=== PATIENT | male | born 1960 | race Caucasian/White ===

== ENCOUNTER 2017-08-13 10:14 | Outpatient (CLI) | payer MEDICARE, MEDICAID ==
--- NOTE | 2017-08-13 11:20 | RAD ---
KUB: Indication: History of right sided abdominal pain. FINDINGS: There is an irregular calcification within the left aspect of the hemipelvis which is new from the [facility] CT topogram dated 08-19-15. This calcification may be related to portions of the bladder or p ossibly the bowel wall. This is unlikely to be related to a vascular structure in the pelvis. Bowel g as pattern is unobstructed. There are small phleboliths within the lower pelvis. No suspicious calcif ication overlying the renal shadows or expected course of the renal collecting systems. No acute osse ous abnormality is evident. IMPRESSION: Irregular calcification seen within the left hemipelvis which may reflect a partially calcified lesio n within the pelvis, possibly related to the bladder, bowel or the vas deferens. CT of the abdomen an d pelvis utilizing a urogram protocol is recommended. Code T POS: [facility]NY
== END 2017-08-13 10:15 | disposition home or self-care (01) ==
LOC: RAD-FRANK 10:14
PROVIDERS: ATTEND Nurse Practitioner Family
DX: Z12.11 Encounter for screening for malignant neoplasm of colon (principal); M85.88 Other specified disorders of bone density and structure, other site
CPT/HCPCS: 74018

== ENCOUNTER 2018-07-24 16:09 | Outpatient (CLI) | payer MEDICARE, MEDICAID ==
--- NOTE | 2018-07-24 19:35 | RAD ---
SUPINE ABDOMEN: History: Abdominal pain. Comparison: 08-13-17 FINDINGS: Scattered stool and gas is seen throughout the colon. Small bowel gas pattern is unremarkable. Irregularly shaped dense calcification in the left hemipelvis is again seen. This was described on pr ior exam and is unchanged. There are other vascular type calcifications in the deep pelvis. IMPRESSION: 1. Unremarkable bowel gas pattern. 2. Abnormal spiculated type calcification in the left hemipelvis is again noted. POS: C
== END 2018-07-24 16:10 | disposition home or self-care (01) ==
LOC: RAD-FRANK 16:09
PROVIDERS: ATTEND Nurse Practitioner Family
DX: R10.9 Unspecified abdominal pain (principal)
CPT/HCPCS: 74018

== ENCOUNTER 2018-07-30 09:44 | Emergency (ER) | payer MEDICARE, MEDICAID ==
[2018-07-30 10:25] LABS: #Eosinphils 0.2 thou/uL (0.0-0.7); #Lymphocytes 1.4 thou/uL (1.20-3.40); #Monocytes 0.5 thou/uL (0.11-0.59); #Neutrophils 5.1 thou/uL (1.40-6.50); %Basophils 0.3 % (0.0-1.0); %Eosinophils 3.1 % (0.0-10.0); %Lymphocytes 19.2 % (21.0-51.0); %Monocytes 6.8 % (0.0-10.0); %Neutrophils 70.5 % (42.0-75.0); Hemoglobin 16.8 g/dL (14.0-18.0); Mean Corpuscular HGB CONC 32.9 g/dL (32.0-36.0); Mean Corpuscular Hemoglobin 30.2 pg (27.0-31.0); Mean Platelet Volume 9.3 fL (7.4-10.4); Platelet Count 184 thou/uL (130-400); RBC Distribution Width 12.5 % (11.5-14.5); Red Blood Cell (RBC) Count 5.57 mill/uL (4.70-6.10); White Blood Cell (WBC) Count 7.2 thou/uL (4.8-10.8)
[2018-07-30 10:49] LABS: ALT (SGPT) 27 U/L (8-55); AST (SGOT) 20 U/L (5-34); Albumin 4.4 g/dL (3.5-5.0); Alkaline Phosphatase 100 U/L (40-150); Anion Gap 11 mmol/L (10-20); BUN (Urea Nitrogen) 13 mg/dL (8.4-25.7); Bilirubin, Total 0.5 mg/dL (0.2-1.2); Calc. Creatinine Clearance 0 mL/min (70-130); Carbon Dioxide 27 mmol/L (22-29); Chloride 103 mmol/L (98-107); Estimated GFR-MDRD 72; Globulin 2.8 g/dL (2.4-3.5); Glucose 157 mg/dL (70-105); Lipase 93 U/L (8-78); Potassium 4.2 mmol/L (3.5-5.1); Protein, Total 7.2 g/dL (6.0-8.3); Sodium 137 mmol/L (136-145)
[2018-07-30] MEDS ORDERED: Dicyclomine 20 MG TAB ONE (12:02)
[2018-07-30 12:28] LABS: Bilirubin Negative (Negative); Blood, Urine Negative (Negative); Clarity CLEAR (Clear); Glucose, Urine (Dipstick) 500 mg/dL (Negative); Leukocyte Trace (Negative); Nitrite Negative (Negative); Protein, Urine (Dipstick) Negative (Neg-Trace); Specific Gravity, Urine 1.017 (1.002-1.036); pH, Urine 5.5 (5.0-9.0)
[2018-07-30 12:31] LABS: Bacteria/HPF None Seen HPF (None Seen); Hyaline Casts/LPF 0-3 HYALINE CAST LPF (0-3 Hyaline); RBC/HPF None Seen HPF (0-3); Squamous Epithelial None Seen HPF (0-3); WBC/HPF 0-3 HPF (0-3)
--- NOTE | 2018-07-30 12:46 | CT ---
CT ABDOMEN WITH CONTRAST: CT PELVIS WITH CONTRAST: HISTORY: Worsening right lower quadrant pain. COMPARISON: None. FINDINGS: ABDOMEN: The lung bases are clear. There are coronary artery calcifications. Heart size is within normal limits. No pericardial effusion. The descending thoracic aorta and abdominal aorta have a no rmal caliber. No periaortic fat stranding. The portal vein is patent. Unremarkable gallbladder. Hypoattenuation of the liver due to hepatic steatosis. The spleen, pancreas, and adrenal glands have appropriate enhancement. Mild atrophy of the pancreas. No gastrohepatic, retrocrural, or periportal lymphadenopathy. Nonspecific periaortic and aortocaval lymph nodes. Symmetric enhancement of the kidneys. Bilaterally, no obstructive uropathy. Limited evaluation of the alimentary canal due to lack of oral contrast. No evidence of bowel obstru ction. The ileocecal junction is normal. Normal caliber appendix. Scattered material in a no ndistended, nondilated colon. Occasional diverticulosis, without evidence of diverticulitis. PELVIS: No pelvic mass, lymphadenopathy, free air, or free fluid. There is a diverticulum at the le ft aspect of the urinary bladder, which contains a stellate-appearing calcification. The calcificati on measures 2 x 1.6 cm. Mild prominence of the urinary bladder mucosa. There are no lytic or blastic lesions. There appears to be pseudoarthrosis of the left S1 ala with t he S2 vertebral body. IMPRESSION: 1. Normal caliber appendix. 2. Incidental stellate calcification in a diverticula, emanating from the left aspect of the urinary bladder. Nonemergent urology consultation is recommended. 3. Mild mucosal prominence of the urinary bladder, which can also be evaluated with cystoscopy. POS: [facility]
== END 2018-07-30 13:17 | disposition home or self-care (01) ==
LOC: ERS 09:44
DX: N32.3 Diverticulum of bladder (principal); E78.5 Hyperlipidemia, unspecified; I10 Essential (primary) hypertension; G40.909 Epilepsy, unspecified, not intractable, without status epilepticus; I25.2 Old myocardial infarction; F32.9 Major depressive disorder, single episode, unspecified; F17.210 Nicotine dependence, cigarettes, uncomplicated; Z79.899 Other long term (current) drug therapy; Z79.84 Long term (current) use of oral hypoglycemic drugs
CPT/HCPCS: 36415; 74177; 80053; 81003; 81015; 83690; 85025; 96360

== ENCOUNTER 2019-06-03 16:21 | Emergency (ER) | payer MEDICARE, MEDICAID ==
[~2019-06-03 16:21] MED LIST: Iopamidol-370 76% 500 ML 1 ML ONE
[2019-06-03 17:30] LABS: Bacteria/HPF 4+ HPF (None Seen); Bilirubin Negative (Negative); Blood, Urine 3+ (Negative); Clarity Extra Turbid (Clear); Glucose, Urine (Dipstick) 500 mg/dL (Negative); Leukocyte 500 Leu/uL (Negative); Nitrite Negative (Negative); Protein, Urine (Dipstick) 300 mg/dL (Neg-Trace); RBC/HPF Greater than 50 HPF (0-3); Squamous Epithelial None Seen HPF (0-3); Urobilinogen Normal mg/dL (Less than 2); WBC/HPF Greater than 50 HPF (0-3)
[2019-06-03 17:41] LABS: #Eosinphils 0.2 thou/uL (0.0-0.7); #Monocytes 1.2 thou/uL (0.11-0.59); #Neutrophils 11.6 thou/uL (1.40-6.50); %Basophils 0.1 % (0.0-1.0); %Eosinophils 1.2 % (0.0-10.0); %Lymphocytes 13.1 % (21.0-51.0); %Monocytes 7.7 % (0.0-10.0); %Neutrophils 77.8 % (42.0-75.0); Hemoglobin 17.3 g/dL (14.0-18.0); Mean Corpuscular Hemoglobin 31.2 pg (27.0-31.0); Mean Corpuscular Volume 89.1 fL (78.0-98.0); Mean Platelet Volume 9.1 fL (7.4-10.4); Platelet Count 174 thou/uL (130-400); RBC Distribution Width 12.4 % (11.5-14.5); Red Blood Cell (RBC) Count 5.54 mill/uL (4.70-6.10); White Blood Cell (WBC) Count 14.9 thou/uL (4.8-10.8)
[2019-06-03] MEDS ORDERED: cefTRIAXone\\ROCEPHIN 2 GM VIAL ONE (17:52)
[2019-06-03 18:00] LABS: ALT (SGPT) 34 U/L (8-55); AST (SGOT) 20 U/L (5-34); Albumin 4.4 g/dL (3.5-5.0); Alkaline Phosphatase 111 U/L (40-110); Anion Gap 14 mmol/L (10-20); BUN (Urea Nitrogen) 17 mg/dL (8.4-25.7); Bilirubin, Total 0.9 mg/dL (0.2-1.2); Calc. Creatinine Clearance 0 mL/min (70-130); Calcium 9.6 mg/dL (7.8-10.44); Carbon Dioxide 24 mmol/L (22-29); Chloride 103 mmol/L (98-107); Estimated GFR-MDRD 60; Globulin 3.2 g/dL (2.4-3.5); Glucose 139 mg/dL (70-105); Potassium 4.3 mmol/L (3.5-5.1); Protein, Total 7.6 g/dL (6.0-8.3); Sodium 137 mmol/L (136-145)
--- NOTE | 2019-06-03 19:11 | CT ---
CT ABDOMEN AND PELVIS WITH IV CONTRAST 06/03/2019 CLINICAL INFORMATION: Lower abdominal pain, left greater than right. Urinary tract issues. Painful urination with only a sm all amount of urine output. COMPARISON: 07/30/2018 Technique: Multiple contiguous axial CT images are obtained through the abdomen and pelvis with IV contrast. Cor onal reformatted images are provided. FINDINGS: Lower Chest: Linear atelectasis is present in the right middle lobe with minimal dependent atelectasi s at each lung base. Vessels: Vascular calcifications are again seen in the coronary arteries as well as the abdominal aor ta and iliac arteries. Abdomen: Portal vein:Patent Gallbladder: Within normal limits for CT imaging. Liver: within normal limits. Spleen: within normal limits. Pancreas: within normal limits. Adrenals: within normal limits. Kidneys: Normal in appearance bilaterally. There is mild nonspecific but symmetric bilateral perineph zaki stranding. Bowel: Normal caliber. Appendix: The appendix is visualized and normal in caliber. Peritoneum: No ascites or free air; no fluid collection. Mesentery and Retroperitoneum: No enlarged mesenteric or retroperitoneal lymph nodes. Abdominal Wall: within normal limits. Pelvis: Reproductive Organs: No pelvic masses. Pelvis within normal limits. Bladder: Adam of the urinary bladder are significantly thickened, and there is mild adjacent inflamm atory stranding present. Gas is present within the urinary bladder which could be related to recent catheterization. As noted on the prior examination, there is a stellate appearing calcification seen in a urinary bladder diverticulum at the left posterolateral aspect of the urinary bladder similar to prior study. Bones: Degenerative changes are again seen in the spine. Median sternotomy wires are seen overlying t he lower sternum. IMPRESSION: 1. Evidence of cystitis. Gas is present within the urinary bladder which may be related to recent ins trumentation. Of prior instrumentation is not been performed, gas-forming organism and urinary bladder is a possibility. 2. Urinary bladder diverticulum containing a 2.5 cm stellate calculus. 3. Above findings discussed with Dr. Camarillo in the emergency department on 06/03/2019 at 1906 hours.
== END 2019-06-03 20:00 | disposition home or self-care (01) ==
LOC: ERS 16:21
DX: N30.90 Cystitis, unspecified without hematuria (principal); E78.5 Hyperlipidemia, unspecified; I10 Essential (primary) hypertension; G40.909 Epilepsy, unspecified, not intractable, without status epilepticus; I25.2 Old myocardial infarction; Z79.899 Other long term (current) drug therapy
CPT/HCPCS: 36415; 74177; 80053; 81003; 81015; 83605; 85025; 87077; 87086; 87186; 96361; 96365; J0696

== ENCOUNTER 2020-03-15 13:52 | Outpatient (CLI) | payer MEDICARE, MEDICAID ==
--- NOTE | 2020-03-15 14:07 | RAD ---
RIGHT ELBOW FOUR VIEWS: 03/15/20 INDICATION: History of right elbow pain. COMPARISON: None. FINDINGS: Enthesopathic changes seen of the olecranon. No acute fracture, subluxation is evident. There is mild osteoarthrosis of the right elbow. IMPRESSION: Mild osteoarthrosis of the right elbow. No acute osseous abnormality. POS: [facility]
== END 2020-03-15 13:53 | disposition home or self-care (01) ==
LOC: RAD-FRANK 13:52
PROVIDERS: ATTEND Nurse Practitioner Family
DX: M77.11 Lateral epicondylitis, right elbow (principal); M19.021 Primary osteoarthritis, right elbow

== ENCOUNTER 2021-06-29 08:50 | Outpatient (CLI) | payer MEDICARE, MEDICAID | END 2021-06-29 08:51 | disposition home or self-care (01) | LOC: RAD-FRANK 08:50 | PROVIDERS: ATTEND Nurse Practitioner Family | DX: M54.50 Low back pain, unspecified (principal); M47.816 Spondylosis without myelopathy or radiculopathy, lumbar region | CPT/HCPCS: 72100 ==

== ENCOUNTER 2021-11-17 09:03 | Outpatient (CLI) | payer MEDICARE | END 2021-11-17 09:04 | disposition home or self-care (01) | LOC: RAD-FRANK 09:03 | PROVIDERS: ATTEND Nurse Practitioner Family | DX: R10.30 Lower abdominal pain, unspecified (principal) | CPT/HCPCS: 72170 ==

== ENCOUNTER 2021-12-08 10:14 | Outpatient (CLI) | payer MEDICARE, MEDICAID ==
[~2021-12-08 10:14] MED LIST changes: +Gadobenate Dimeglumine 529 MG/1 ML (20ML VIAL) ONE; -Iopamidol-370 76% 500 ML 1 ML ONE
== END 2021-12-08 10:15 | disposition home or self-care (01) ==
LOC: BICMRI 10:14
PROVIDERS: ATTEND Surgery
DX: R10.31 Right lower quadrant pain (principal); N32.3 Diverticulum of bladder; N21.0 Calculus in bladder
CPT/HCPCS: 72197; 82565; A9577

== ENCOUNTER 2022-01-24 21:36 | Inpatient (IN) | payer OTHER, MEDICARE, MEDICAID ==
[~2022-01-24 21:36] MED LIST changes: -Gadobenate Dimeglumine 529 MG/1 ML (20ML VIAL) ONE; +Iopamidol-370 76% 500 ML 1 ML ONE
[2022-01-24] MEDS ORDERED: CEFAZOLIN 2 GM VIAL ONE (22:28)
[2022-01-24] MEDS ORDERED: Boostrix 0.5 ML (Tdap) VIAL ONE (22:28)
[2022-01-24 22:37] LABS: #Eosinphils 0.2 thou/uL (0.0-0.7); #Lymphocytes 2.2 thou/uL (1.20-3.40); #Monocytes 0.3 thou/uL (0.11-0.59); #Neutrophils 8.4 thou/uL (1.40-6.50); %Basophils 0.1 % (0.0-1.0); %Eosinophils 1.7 % (0.0-10.0); %Monocytes 2.9 % (0.0-10.0); %Neutrophils 75.3 % (42.0-75.0); Mean Corpuscular HGB CONC 32.3 g/dL (32.0-36.0); Mean Corpuscular Hemoglobin 30.5 pg (27.0-31.0); Mean Corpuscular Volume 94.6 fL (78.0-98.0); Mean Platelet Volume 9.5 fL (7.4-10.4); Platelet Count 179 thou/uL (130-400); RBC Distribution Width 12.6 % (11.5-14.5); Red Blood Cell (RBC) Count 5.24 mill/uL (4.70-6.10); White Blood Cell (WBC) Count 11.2 thou/uL (4.8-10.8)
[2022-01-24] MEDS ORDERED: Sodium Bicarb 50 MEQ/50 ML Abboject 8.4% SYRINGE ONE (22:37)
[2022-01-24] MEDS ORDERED: EPINEPHrine 1 MG/10 ML Abboject SYRINGE ONE (22:37)
[2022-01-24] MEDS ORDERED: Calcium Chloride 1 GM/10 ML Abboject SYRINGE ONE (22:37)
[2022-01-24] MEDS ORDERED: Ketamine 50 MG/ML (10ML VIAL) ONE (22:39)
[2022-01-24] MEDS ORDERED: Rocuronium Bromide 10 MG/ML (10ML VIAL) ONE (22:39)
[2022-01-24] MEDS ORDERED: Ondansetron PF 4 MG/2 ML Vial ONE (22:43)
[2022-01-24] MEDS ORDERED: Fentanyl CADD 100 ML IV SCH (22:45)
[2022-01-24 22:52] LABS: PTT 27.8 sec (22.9-36.1); Prothrombin Time 13.3 sec (12.0-14.7)
[2022-01-24 22:56] LABS: ALT (SGPT) 153 U/L (8-55); AST (SGOT) 166 U/L (5-34); Albumin 4.1 g/dL (3.4-4.8); Alkaline Phosphatase 92 U/L (40-110); Anion Gap 18 mmol/L (10-20); BUN (Urea Nitrogen) 23 mg/dL (8.4-25.7); Bilirubin, Total 0.6 mg/dL (0.2-1.2); Calc. Creatinine Clearance 0 mL/min (70-130); Calcium 9.4 mg/dL (7.8-10.44); Carbon Dioxide 25 mmol/L (23-31); Chloride 104 mmol/L (98-107); Estimated GFR 42; Globulin 2.6 g/dL (2.4-3.5); Glucose 252 mg/dL (80-115); Potassium 5.6 mmol/L (3.5-5.1); Protein, Total 6.7 g/dL (5.8-8.1); Sodium 141 mmol/L (136-145)
[2022-01-24 23:03] LABS: Acetaminophen Less than 10.0 mcg/mL (10.0-30.0); Alcohol Less than 10 mg/dL (Less than 10); Salicylate Less than 8.0 mg/dL (15.0-30.0)
[2022-01-24] MEDS ORDERED: NOREPINEPHRINE 8 MG/250 ML-D5W 250 ML ONE (23:17)
[2022-01-24] MEDS ORDERED: Sterile Water 10 ML ONE (23:17)
[2022-01-24 23:25] LABS: Actual Bicarbonate (HCO3a) 26.9 mEq/L (22-28); Analyzer IN Cardio ER; Base Excess (BEa) -0.7 mEq/L (-2.0 to +3.0); CO2 Tension 56.1 mmHg (35.0-45.0); Calcium, Ionized (arterial) 1.47 mmol/L (1.12-1.30); Carboxyhemoglobin (COHb) 3.4 gm% (0.0-3.0); Hemoglobin (Hb) 15.7 g/dL (14.0-18.0); Potassium - ABG Lab 5.13 mmol/L (3.70-5.30)
[2022-01-24 23:26] LABS: O2 Tension (PaO2), arterial 52.5 mmHg (> 80.0)
[2022-01-24 23:27] LABS: ALV-art Gradient 590.375 mmHg (0-20); Puncture Site RRA
[2022-01-24] MEDS ORDERED: hydrALAZINE 20 MG/ML VIAL SLOW IVP PRN (23:33)
[2022-01-24] MEDS ORDERED: Ondansetron PF 4 MG/2 ML Vial IVP PRN (23:33)
[2022-01-24] MEDS ORDERED: Dextrose 50% Abboject 50 ML SYRINGE SLOW IVP PRN (23:33)
[2022-01-24] MEDS ORDERED: Promethazine HCl 25 MG/ML VIAL IM PRN (23:33)
[2022-01-24] MEDS ORDERED: Dextrose 5% in Water 1,000 ML IV PRN (23:33)
[2022-01-24] MEDS ORDERED: fentaNYL Citrate/PF 2,000 MCG in Sodium Chloride 0.9% 60 ML IV PRN (23:36)
[2022-01-24] MEDS ORDERED: Sodium Chloride 0.9% 1,000 ML IV SCH ×2 (23:45→23:53)
[2022-01-24] MEDS ORDERED: NOREPINEPHRINE 8 MG/250 ML-D5W 250 ML IVPB SCH (23:45)
[2022-01-24 23:59] LABS: #Eosinphils 0.1 thou/uL (0.0-0.7); #Lymphocytes 0.7 thou/uL (1.20-3.40); #Monocytes 0.1 thou/uL (0.11-0.59); %Basophils 0.4 % (0.0-1.0); %Eosinophils 1.1 % (0.0-10.0); %Lymphocytes 9.2 % (21.0-51.0); %Monocytes 1.2 % (0.0-10.0); Hemoglobin 15.3 g/dL (14.0-18.0); Mean Corpuscular HGB CONC 34.7 g/dL (32.0-36.0); Mean Corpuscular Hemoglobin 32.7 pg (27.0-31.0); Mean Corpuscular Volume 94.2 fL (78.0-98.0); RBC Distribution Width 13.1 % (11.5-14.5); Red Blood Cell (RBC) Count 4.67 mill/uL (4.70-6.10)
[2022-01-24] MEDS ORDERED: TETANUS, DIPHTHERIA TOX,ADULT (TDVAX) 0.5 ML VIAL IM ONE (23:59)
[2022-01-25 00:18] LABS: Anion Gap 22 mmol/L (10-20); BUN (Urea Nitrogen) 23 mg/dL (8.4-25.7); CK (CPK) 932 U/L (30-200); Calc. Creatinine Clearance 0 mL/min (70-130); Calcium 10.3 mg/dL (7.8-10.44); Carbon Dioxide 24 mmol/L (23-31); Chloride 101 mmol/L (98-107); Estimated GFR 48; Glucose 279 mg/dL (80-115); Magnesium 1.8 mg/dL (1.6-2.6); Phosphorus 6.1 mg/dL (2.3-4.7); Potassium 4.9 mmol/L (3.5-5.1); Sodium 142 mmol/L (136-145)
[2022-01-25 00:20] LABS: Mean Platelet Volume 8.7 fL (7.4-10.4); Platelet Count 114 thou/uL (130-400); Platelet Morphology Comment Appears Decreased
[2022-01-25 00:33] LABS: Lactic Acid 5.2 mmol/L (0.5-2.2)
[2022-01-25 00:52] LABS: Actual Bicarbonate (HCO3a) 26.6 mEq/L (22-28); Base Excess (BEa) 2.7 mEq/L (-2.0 to +3.0); CO2 Tension 38.4 mmHg (35.0-45.0); Calcium, Ionized (arterial) 1.23 mmol/L (1.12-1.30); Carboxyhemoglobin (COHb) 2.5 gm% (0.0-3.0); O2 Tension (PaO2), arterial 60.7 mmHg (> 80.0); Potassium - ABG Lab 4.19 mmol/L (3.70-5.30); pH, Arterial 7.46 (7.35-7.45)
[2022-01-25 00:55] LABS: Puncture Site RRA
[2022-01-25] MEDS: HumaLOG 300 UNITS/3 ML VIAL SC PRN ×5 (01:00→21:01)
[2022-01-25 01:02] LABS: CKMB 16.2 ng/mL (0-6.6)
[2022-01-25] MEDS ORDERED: Midazolam HCl 2 mg/2 ml Vial SLOW IVP PRN (01:13)
[2022-01-25] MEDS ORDERED: levETIRAcetam in NS 1,500 MG in Premix Bag 1 BAG IVPB SCH (01:15)
[2022-01-25] MEDS: Sodium Chloride 0.9% 1,000 ML IV SCH ×6 (01:16→17:51)
[2022-01-25 01:36] LABS: Lactic Acid 3.8 mmol/L (0.5-2.2)
[2022-01-25] MEDS: Acetaminophen 500 MG TAB PO SCH ×4 (02:00→17:30)
[2022-01-25 02:01] LABS: SARS-CoV-2 NAA Rapid Test Not Detected (NotDetected)
[2022-01-25 02:58] LABS: Bacteria/HPF None Seen HPF (None Seen); Bilirubin Negative (Negative); Blood, Urine 3+ (Negative); Clarity Clear (Clear); Glucose, Urine (Dipstick) 500 mg/dL (Negative); Ketone, Urine Negative (Negative); Leukocyte Negative Leu/uL (Negative); Nitrite Negative (Negative); Protein, Urine (Dipstick) 20 mg/dL (Neg-Trace); RBC/HPF Greater than 50 HPF (0-3); Specific Gravity, Urine 1.021 (1.002-1.036); Squamous Epithelial 0-3 HPF (0-3); Urobilinogen Normal mg/dL (Less than 2)
[2022-01-25 03:03] LABS: Urine Culture Reflex Yes Yes
[2022-01-25 05:41] LABS: #Lymphocytes 0.6 thou/uL (1.20-3.40); #Monocytes 0.5 thou/uL (0.11-0.59); #Neutrophils 9.4 thou/uL (1.40-6.50); %Eosinophils 0.3 % (0.0-10.0); %Lymphocytes 5.3 % (21.0-51.0); %Monocytes 4.6 % (0.0-10.0); %Neutrophils 89.8 % (42.0-75.0); Hemoglobin 13.5 g/dL (14.0-18.0); Mean Corpuscular HGB CONC 34.4 g/dL (32.0-36.0); Mean Platelet Volume 9.6 fL (7.4-10.4); Platelet Count 103 thou/uL (130-400); RBC Distribution Width 13.3 % (11.5-14.5); Red Blood Cell (RBC) Count 4.23 mill/uL (4.70-6.10); White Blood Cell (WBC) Count 10.5 thou/uL (4.8-10.8)
[2022-01-25 05:58] LABS: Lactic Acid 3.6 mmol/L (0.5-2.2)
[2022-01-25 06:06] LABS: Anion Gap 17 mmol/L (10-20); BUN (Urea Nitrogen) 25 mg/dL (8.4-25.7); CK (CPK) 2223 U/L (30-200); Calc. Creatinine Clearance 89 mL/min (70-130); Calcium 9.3 mg/dL (7.8-10.44); Carbon Dioxide 26 mmol/L (23-31); Chloride 107 mmol/L (98-107); Estimated GFR 56; Glucose 187 mg/dL (80-115); Magnesium 1.6 mg/dL (1.6-2.6); Potassium 3.9 mmol/L (3.5-5.1); Sodium 146 mmol/L (136-145)
[2022-01-25 06:09] LABS: Phosphorus 2.7 mg/dL (2.3-4.7)
[2022-01-25 07:42] LABS: Actual Bicarbonate (HCO3a) 22.6 mEq/L (22-28); Base Excess (BEa) 1.4 mEq/L (-2.0 to +3.0); Calcium, Ionized (arterial) 1.15 mmol/L (1.12-1.30); Carboxyhemoglobin (COHb) 0.8 gm% (0.0-3.0); Hemoglobin (Hb) 14.2 g/dL (14.0-18.0); Potassium - ABG Lab 3.73 mmol/L (3.70-5.30); pH, Arterial 7.54 (7.35-7.45)
[2022-01-25 07:49] LABS: Puncture Site RRA
[2022-01-25] MEDS: Famotidine/PF 20 mg/2ml Vial SLOW IVP SCH ×2 (09:33→21:01)
[2022-01-25 09:42] LABS: Amphetamine Not Detected (NotDetected); Barbiturates Screen Not Detected (NotDetected); Benzodiazepine Screen Not Detected (NotDetected); Cocaine Metabolite Screen Not Detected (NotDetected); Methadone Not Detected (NotDetected); Methamphetamine Not Detected (NotDetected); Opiate Screen Not Detected (NotDetected); Oxycodone Screen Not Detected (NotDetected); Phencyclidine (PCP) Not Detected (NotDetected); THC/Cannabinoid Screen Detected (NotDetected); Tricyclic Screen Not Detected (NotDetected)
[2022-01-25 12:43] LABS: Troponin I 0.393 ng/mL (< 0.028)
[2022-01-25] MEDS ORDERED: Sodium Chloride 0.9% 500 ML IV SCH (15:15)
[2022-01-25 16:47] LABS: Critical Call Chem Troponin I RESULT DECREASING; Troponin I 0.314 ng/mL (< 0.028)
[2022-01-25] MEDS: levETIRAcetam 500 MG TAB PO SCH (21:01)
[2022-01-26] MEDS: Acetaminophen 500 MG TAB PO SCH ×4 (00:06→18:34)
[2022-01-26] MEDS: HumaLOG 300 UNITS/3 ML VIAL SC PRN ×6 (00:09→20:46)
[2022-01-26] MEDS: Sodium Chloride 0.9% 1,000 ML IV SCH ×2 (04:00→08:30)
[2022-01-26 04:56] LABS: Anion Gap 15 mmol/L (10-20); BUN (Urea Nitrogen) 26 mg/dL (8.4-25.7); CK (CPK) 2132 U/L (30-200); Calc. Creatinine Clearance 104 mL/min (70-130); Calcium 8.4 mg/dL (7.8-10.44); Carbon Dioxide 25 mmol/L (23-31); Chloride 109 mmol/L (98-107); Estimated GFR 68; Glucose 168 mg/dL (80-115); Magnesium 1.5 mg/dL (1.6-2.6); Phosphorus 3.5 mg/dL (2.3-4.7); Sodium 145 mmol/L (136-145)
[2022-01-26 05:06] LABS: #Eosinphils 0.1 thou/uL (0.0-0.7); #Lymphocytes 1.1 thou/uL (1.20-3.40); #Monocytes 0.8 thou/uL (0.11-0.59); #Neutrophils 8.6 thou/uL (1.40-6.50); %Basophils 0.3 % (0.0-1.0); %Eosinophils 0.9 % (0.0-10.0); %Lymphocytes 10.3 % (21.0-51.0); %Monocytes 7.1 % (0.0-10.0); %Neutrophils 81.4 % (42.0-75.0); Hemoglobin 12.9 g/dL (14.0-18.0); Mean Corpuscular HGB CONC 33.6 g/dL (32.0-36.0); Mean Corpuscular Hemoglobin 31.5 pg (27.0-31.0); Mean Corpuscular Volume 93.7 fL (78.0-98.0); Mean Platelet Volume 10.7 fL (7.4-10.4); Platelet Count 80 thou/uL (130-400); RBC Distribution Width 13.5 % (11.5-14.5); White Blood Cell (WBC) Count 10.6 thou/uL (4.8-10.8)
[2022-01-26 05:12] LABS: CKMB 4.7 ng/mL (0-6.6)
[2022-01-26] MEDS ORDERED: Magnesium 2 GM/50 ML(in water) 2 GM in Premix Bag 1 BAG IVPB SCH (07:45)
[2022-01-26] MEDS: levETIRAcetam 500 MG TAB PO SCH ×2 (08:29→20:47)
[2022-01-26] MEDS: Famotidine/PF 20 mg/2ml Vial SLOW IVP SCH ×2 (08:29→20:47)
[2022-01-26] MEDS: Amantadine HCl 100 mg Capsule PO SCH ×2 (08:38→20:47)
[2022-01-26] MEDS ORDERED: Fentanyl 100 MCG/2 ML VIAL SLOW IVP SCH (21:45)
[2022-01-26] MEDS: Fentanyl 100 MCG/2 ML VIAL SLOW IVP PRN (23:57)
[2022-01-27] MEDS: Acetaminophen 500 MG TAB PO SCH ×5 (00:02→23:51)
[2022-01-27] MEDS: HumaLOG 300 UNITS/3 ML VIAL SC PRN ×6 (00:06→23:52)
[2022-01-27] MEDS: Fentanyl 100 MCG/2 ML VIAL SLOW IVP PRN ×5 (01:37→14:37)
[2022-01-27] MEDS: Labetalol HCl 100 MG/20 ML VIAL SLOW IVP PRN ×2 (04:24→10:49)
[2022-01-27] MEDS ORDERED: Fentanyl 100 MCG/2 ML VIAL FS SCH (08:30)
[2022-01-27] MEDS ORDERED: Vecuronium 10 MG VIAL FS SCH (08:30)
[2022-01-27] MEDS ORDERED: Midazolam HCl 2 mg/2 ml Vial FS SCH (08:30)
[2022-01-27] MEDS: Famotidine/PF 20 mg/2ml Vial SLOW IVP SCH ×2 (08:32→21:22)
[2022-01-27] MEDS: levETIRAcetam 500 MG TAB PO SCH ×2 (08:32→21:22)
[2022-01-27] MEDS: hydrALAZINE 20 MG/ML VIAL SLOW IVP PRN (08:32)
[2022-01-27] MEDS: Amantadine HCl 100 mg Capsule PO SCH ×2 (08:42→21:22)
[2022-01-27] MEDS ORDERED: Lidocaine 1% MPF 2 ML VIAL FS SCH (09:00)
[2022-01-27] MEDS ORDERED: CEFAZOLIN 2 GM in Sodium Chloride 0.9% 100 ML IVPB SCH (10:30)
[2022-01-27] MEDS ORDERED: Midazolam HCl 2 mg/2 ml Vial ONE ×3 (16:26)
[2022-01-27] MEDS ORDERED: PROPOFOL 20 ML ONE (16:49)
[2022-01-27] MEDS ORDERED: Piperacillin/Tazobactam 3.375 GM in Sodium Chloride 0.9% 100 ML IVPB SCH (18:00)
[2022-01-27] MEDS ORDERED: Fentanyl 100 MCG/2 ML VIAL SLOW IVP SCH (18:30)
[2022-01-27] MEDS ORDERED: PROPOFOL 200 MG/20 ML VIAL IV SCH (18:30)
[2022-01-27] MEDS ORDERED: Midazolam HCl 2 mg/2 ml Vial IVP SCH (18:30)
[2022-01-27] MEDS: Piperacillin/Tazobactam 3.375 GM in Sodium Chloride 0.9% 100 ML IVPB SCH (21:22)
[2022-01-28] MEDS: HumaLOG 300 UNITS/3 ML VIAL SC PRN ×5 (03:41→20:35)
[2022-01-28] MEDS: Piperacillin/Tazobactam 3.375 GM in Sodium Chloride 0.9% 100 ML IVPB SCH ×3 (06:06→23:04)
[2022-01-28] MEDS: Labetalol HCl 100 MG/20 ML VIAL SLOW IVP PRN ×3 (06:07→23:05)
[2022-01-28] MEDS: Acetaminophen 500 MG TAB PO SCH ×3 (06:11→17:22)
[2022-01-28] MEDS ORDERED: Morphine 2 MG/ML VIAL SLOW IVP PRN (08:17)
[2022-01-28 08:43] LABS: #Lymphocytes 0.8 thou/uL (1.20-3.40); #Monocytes 0.8 thou/uL (0.11-0.59); #Neutrophils 8.3 thou/uL (1.40-6.50); %Basophils 0.1 % (0.0-1.0); %Eosinophils 0.2 % (0.0-10.0); %Lymphocytes 7.8 % (21.0-51.0); %Monocytes 7.8 % (0.0-10.0); %Neutrophils 84.1 % (42.0-75.0); Mean Corpuscular HGB CONC 33.2 g/dL (32.0-36.0); Mean Corpuscular Hemoglobin 31.7 pg (27.0-31.0); Mean Corpuscular Volume 95.6 fL (78.0-98.0); Mean Platelet Volume 9.5 fL (7.4-10.4); Platelet Count 121 thou/uL (130-400); RBC Distribution Width 12.7 % (11.5-14.5); Red Blood Cell (RBC) Count 3.77 mill/uL (4.70-6.10); White Blood Cell (WBC) Count 9.8 thou/uL (4.8-10.8)
[2022-01-28 09:02] LABS: Anion Gap 16 mmol/L (10-20); BUN (Urea Nitrogen) 25 mg/dL (8.4-25.7); Calc. Creatinine Clearance 119 mL/min (70-130); Calcium 8.4 mg/dL (7.8-10.44); Carbon Dioxide 23 mmol/L (23-31); Chloride 109 mmol/L (98-107); Estimated GFR 83; Glucose 176 mg/dL (80-115); Magnesium 1.9 mg/dL (1.6-2.6); Potassium 3.6 mmol/L (3.5-5.1); Sodium 144 mmol/L (136-145)
[2022-01-28] MEDS: Amantadine HCl 100 mg Capsule PO SCH ×2 (09:43→20:39)
[2022-01-28] MEDS: levETIRAcetam 500 MG TAB PO SCH ×2 (09:43→20:32)
[2022-01-28] MEDS: Famotidine/PF 20 mg/2ml Vial SLOW IVP SCH ×2 (09:43→20:32)
[2022-01-28] MEDS: hydrALAZINE 20 MG/ML VIAL SLOW IVP PRN (12:05)
[2022-01-28] MEDS ORDERED: Fentanyl 100 MCG/2 ML VIAL SLOW IVP SCH (14:15)
[2022-01-28] MEDS ORDERED: Fentanyl 100 MCG/2 ML VIAL SLOW IVP PRN (19:49)
[2022-01-28] MEDS: VANCOMYCIN 2 GRAM/500 ML BAG 2 GM in Premix Bag 1 BAG IVPB SCH (20:32)
[2022-01-28] MEDS: Pregabalin 50 MG CAP PO SCH (20:39)
[2022-01-28] MEDS: Acetaminophen/Codeine 30-300mg Tablet PO SCH (23:04)
[2022-01-29] MEDS: HumaLOG 300 UNITS/3 ML VIAL SC PRN ×6 (01:36→21:17)
[2022-01-29] MEDS: Acetaminophen/Codeine 30-300mg Tablet PO SCH ×3 (05:21→17:51)
[2022-01-29] MEDS: Piperacillin/Tazobactam 3.375 GM in Sodium Chloride 0.9% 100 ML IVPB SCH ×3 (05:21→22:13)
[2022-01-29] MEDS: VANCOMYCIN 2 GRAM/500 ML BAG 2 GM in Premix Bag 1 BAG IVPB SCH ×2 (08:04→20:41)
[2022-01-29] MEDS: Amantadine HCl 100 mg Capsule PO SCH ×2 (08:05→20:57)
[2022-01-29] MEDS: Pregabalin 50 MG CAP PO SCH ×2 (08:05→20:57)
[2022-01-29] MEDS: Famotidine/PF 20 mg/2ml Vial SLOW IVP SCH ×2 (08:05→20:41)
[2022-01-29] MEDS: levETIRAcetam 500 MG TAB PO SCH ×2 (08:05→20:41)
[2022-01-29 12:57] VITALS: BMI 31.9
[2022-01-30] MEDS: Acetaminophen/Codeine 30-300mg Tablet PO SCH ×4 (00:29→17:21)
[2022-01-30] MEDS: HumaLOG 300 UNITS/3 ML VIAL SC PRN ×5 (01:13→16:01)
[2022-01-30 05:19] LABS: Band 14 % (5-11); Hemoglobin 11.2 g/dL (14.0-18.0); Lymphocytes 11 % (21-51); MDiff Complete? YES; Mean Corpuscular HGB CONC 33.2 g/dL (32.0-36.0); Mean Corpuscular Volume 96.3 fL (78.0-98.0); Mean Platelet Volume 9.5 fL (7.4-10.4); Monocytes 9 % (0-10); Neutrophil 66 % (42-75); Platelet Count 153 thou/uL (130-400); Platelet Morphology Comment Appears Adequate; RBC Distribution Width 12.5 % (11.5-14.5); RBC Morphology Normal; Red Blood Cell (RBC) Count 3.49 mill/uL (4.70-6.10); White Blood Cell (WBC) Count 12.8 thou/uL (4.8-10.8)
[2022-01-30 05:28] LABS: Anion Gap 13 mmol/L (10-20); BUN (Urea Nitrogen) 39 mg/dL (8.4-25.7); Calc. Creatinine Clearance 136 mL/min (70-130); Calcium 8.6 mg/dL (7.8-10.44); Carbon Dioxide 26 mmol/L (23-31); Chloride 113 mmol/L (98-107); Estimated GFR 96; Glucose 235 mg/dL (80-115); Magnesium 2.2 mg/dL (1.6-2.6); Phosphorus 2.9 mg/dL (2.3-4.7); Potassium 3.6 mmol/L (3.5-5.1); Sodium 148 mmol/L (136-145)
[2022-01-30 07:25] LABS: Vancomycin, Trough 17.7 ug/mL
[2022-01-30] MEDS: Piperacillin/Tazobactam 3.375 GM in Sodium Chloride 0.9% 100 ML IVPB SCH ×2 (07:33→13:57)
[2022-01-30] MEDS: Famotidine/PF 20 mg/2ml Vial SLOW IVP SCH (08:24)
[2022-01-30] MEDS: VANCOMYCIN 2 GRAM/500 ML BAG 2 GM in Premix Bag 1 BAG IVPB SCH (08:24)
[2022-01-30] MEDS: levETIRAcetam 500 MG TAB PO SCH (08:24)
[2022-01-30] MEDS: Amantadine HCl 100 mg Capsule PO SCH (08:24)
[2022-01-30] MEDS: Pregabalin 50 MG CAP PO SCH (08:24)
[2022-01-30] MEDS ORDERED: Polyethylene Glycol 3350 17 GM Packet PO SCH (09:00)
[2022-01-30] MEDS ORDERED: Saccharomyces boulardii 250 MG CAP PO SCH (09:00)
[2022-01-30] MEDS ORDERED: Senokot S 8.6-50 MG TAB PO SCH (09:00)
[2022-01-30] MEDS ORDERED: Enoxaparin Sodium 40 MG/0.4 ML SYRINGE SC SCH (09:00)
[2022-01-30] MEDS ORDERED: Morphine 4 MG/ML VIAL ONE (09:26)
[2022-01-30] MEDS ORDERED: Morphine 4 MG/ML VIAL SLOW IVP SCH (09:30)
[2022-01-30] MEDS ORDERED: Morphine 4 MG/ML VIAL SLOW IVP PRN (09:32)
[2022-01-30] MEDS: Dexamethasone 4 mg/ml Vial SLOW IVP SCH ×2 (10:03→16:01)
[2022-01-30] MEDS: Acetaminophen 325 MG TAB PO SCH ×2 (11:45→17:21)
[2022-01-30 14:13] VITALS: BP 145/95
[2022-01-30 16:06] VITALS: TEMP 100
[2022-01-30] MEDS ORDERED: Famotidine 20 MG TAB PER TUBE SCH (21:00)
== END 2022-01-30 18:30 | DRG 4 ==
LOC: ERS 21:36 → CCU 23:33
PROVIDERS: ADMIT Surgery; ATTEND Surgery
PROC: 5A1955Z Respiratory Ventilation, Greater than 96 Consecutive Hours (ICD-10-PCS; 2022-01-24)
PROC: 30233L1 Transfusion of Nonautologous Fresh Plasma into Peripheral Vein, Percutaneous Approach (ICD-10-PCS; 2022-01-24)
PROC: 30233N1 Transfusion of Nonautologous Red Blood Cells into Peripheral Vein, Percutaneous Approach (ICD-10-PCS; 2022-01-24)
PROC: 30233R1 Transfusion of Nonautologous Platelets into Peripheral Vein, Percutaneous Approach (ICD-10-PCS; 2022-01-24)
PROC: 30233M1 Transfusion of Nonautologous Plasma Cryoprecipitate into Peripheral Vein, Percutaneous Approach (ICD-10-PCS; 2022-01-24)
PROC: 30233K1 Transfusion of Nonautologous Frozen Plasma into Peripheral Vein, Percutaneous Approach (ICD-10-PCS; 2022-01-24)
PROC: 3E033XZ Introduction of Vasopressor into Peripheral Vein, Percutaneous Approach (ICD-10-PCS; 2022-01-24)
PROC: 0BH18EZ Insertion of Endotracheal Airway into Trachea, Via Natural or Artificial Opening Endoscopic (ICD-10-PCS; 2022-01-24)
PROC: 0D9670Z Drainage of Stomach with Drainage Device, Via Natural or Artificial Opening (ICD-10-PCS; 2022-01-24)
PROC: 0B113F4 Bypass Trachea to Cutaneous with Tracheostomy Device, Percutaneous Approach (ICD-10-PCS; principal; 2022-01-27)
PROC: 0DH63UZ Insertion of Feeding Device into Stomach, Percutaneous Approach (ICD-10-PCS; 2022-01-27)
DX: S14.103A Unspecified injury at C3 level of cervical spinal cord, initial encounter (principal); J69.0 Pneumonitis due to inhalation of food and vomit; J96.00 Acute respiratory failure, unspecified whether with hypoxia or hypercapnia; I46.9 Cardiac arrest, cause unspecified; S06.9X9A Unspecified intracranial injury with loss of consciousness of unspecified duration, initial encounter; S32.10XA Unspecified fracture of sacrum, initial encounter for closed fracture; E87.2 Acidosis; N17.9 Acute kidney failure, unspecified; D62 Acute posthemorrhagic anemia; G93.1 Anoxic brain damage, not elsewhere classified; I25.10 Atherosclerotic heart disease of native coronary artery without angina pectoris; S12.601A Unspecified nondisplaced fracture of seventh cervical vertebra, initial encounter for closed fracture; I10 Essential (primary) hypertension; E11.9 Type 2 diabetes mellitus without complications; F17.210 Nicotine dependence, cigarettes, uncomplicated; E87.5 Hyperkalemia; T79.6XXA Traumatic ischemia of muscle, initial encounter; E87.6 Hypokalemia; E83.42 Hypomagnesemia; S01.01XA Laceration without foreign body of scalp, initial encounter; K59.00 Constipation, unspecified; Z20.822 Contact with and (suspected) exposure to COVID-19; Z98.890 Other specified postprocedural states; Z95.1 Presence of aortocoronary bypass graft; Z79.82 Long term (current) use of aspirin; Z79.899 Other long term (current) drug therapy; Z79.84 Long term (current) use of oral hypoglycemic drugs; V03.99XA Pedestrian with other conveyance injured in collision with car, pick-up truck or van, unspecified whether traffic or nontraffic accident, initial encounter; Y92.89 Other specified places as the place of occurrence of the external cause
CPT/HCPCS: 31500; 31624; 36415; 36416; 36430; 36600; 70450; 70498; 70544; 70551; 71045; 71260; 72125; 72141; 72170; 74177; 80048; 80053; 80202; 80306; 80307; 81001; 82550; 82553; 82805; 83605; 83735; 84100; 84146; 84484; 85025; 85610; 85730; 86850; 86870; 86880; 86900; 86901; 86905; 86922; 87070; 87077; 87086; 87186; 87205; 90471; 90715; 93005; 93010; 93306; 94003; 94640; 95816; 95819; 95957; 96374; 96375; 96376; G0390; J0171; J0360; J0690; J1100; J1610; J1650; J1815; J1953; J2250; J2270; J2405; J2543; J2704; J3010; J3370; J3475; J3490; J7030; J7050; J7620; P9012; P9016; P9035; P9048; P9059; Q9967; S0028; U0002